=== PATIENT | male | born 1980 | race Caucasian/White ===

== ENCOUNTER → 2017-06-01 | Outpatient (CLI) | payer BC ==
[2017-06-01 14:46] LABS: BASO # 0.1 (0.0-0.2); EOS # 0.4 (0.0-0.7); EOS % 4.4 % (0-4.0); GRAN # 4.7 (1.4-6.5); GRAN % 58.2 % (42.2-75.2); HEMATOCRIT 44.4 % (42.0-52.0); LYMPH # 2.3 (1.2-3.4); LYMPH % 28.1 % (20.0-51.0); MEAN CELL VOLUME 94 fl (80.0-100.0); MEAN CORPUSCULAR HEMOGLOBIN 32 pg (27.0-31.0); MEAN CORPUSCULAR HGB CONC 34 g/dl (33.0-37.0); MONO # 0.6 (0.1-0.6); MONO % 7.6 % (1.7-9.3); PLATELET COUNT 248 K/mm3 (130-400); RED BLOOD COUNT 4.73 M/mm3 (4.20-5.60)
[2017-06-01 14:51] LABS: ADJUSTED CALCIUM 9.4 mg/dL (8.4-10.2); ALBUMIN 4.6 gm/dL (3.5-5.0); BILIRUBIN,TOTAL 0.5 mg/dL (0.0-1.0); CALCIUM 9.9 mg/dL (8.4-10.2); CREATININE, serum 0.88 mg/dL (0.66-1.25); POTASSIUM 4.1 mmol/L (3.4-5.0)
== END ==
LOC: COL.RAD 10:37
PROVIDERS: Nurse Practitioner
DX: M51.36 Other intervertebral disc degeneration, lumbar region (principal); R10.32 Left lower quadrant pain

== ENCOUNTER 2021-02-18 11:07 | Observation (INO) | payer OTHER ==
[~2021-02-18] VITALS: Ht 188 cm; Wt 124.7 kg
[2021-02-18] VITALS (11 sets, daily range): BP systolic 111–137; BP diastolic 67–74; PULSE 73–94; TEMP 97.7–98.6
[2021-02-18] MEDS ORDERED: METFORMIN PO (11:54)
[2021-02-18] MEDS ORDERED: GLIPIZIDE PO (11:54)
[2021-02-18] MEDS ORDERED: NORCO 325 MG-51 TAB PO (11:55)
--- NOTE | 2021-02-18 16:51 | NUR ---
Patient alert and oriented, answers questions appropriately. See assessment. Packing and gauze in place to right scrotum. No c/o pain to scrotum. Visiting hours and dietary ordering reviewed with patient and spouse. No c/o at this time.
--- NOTE | 2021-02-18 20:00 | NUR ---
PATIENT IS ALERT AND ORIENTED X4. PATIENT HAS 1/2 IODOFOM, 4X4, KERLIX, AND MESH UNDIES ON PERINEAL ABCESS. PATIENT HAD JUST GOTTEN DONE TAKING A WALK AROUND THE FLOOR. PATIENT HAS 20G TO LEFT HAND. PATIENT ON ADA DIET. PATIENT DENIES PAIN OR FURTHER NEEDS AT THIS TIME. CALL LIGHT WITHIN REACH. HEAD TO TOE ASSESSMENT COMPLETE.
[2021-02-19] MEDS ORDERED: NORCO 325 MG-51 TAB PO (07:20)
[2021-02-19 07:47] VITALS: BP 135/77; PULSE 76; TEMP 97.8
--- NOTE | 2021-02-19 12:30 | NUR ---
Discharge instructions reviewed with patient, verbalized understanding. Discharged via wheelchair to auto/home at 1230.
== END 2021-02-19 12:30 | disposition home or self-care (01) ==
LOC: INPTSU 11:07 → SURG 15:47
PROVIDERS: ADMIT Urology
DX: N49.2 Inflammatory disorders of scrotum (principal); L02.31 Cutaneous abscess of buttock; E11.9 Type 2 diabetes mellitus without complications; F17.210 Nicotine dependence, cigarettes, uncomplicated; Z20.822 Contact with and (suspected) exposure to COVID-19; Z79.84 Long term (current) use of oral hypoglycemic drugs
CPT/HCPCS: G0378; J0690; J1815; J1885; J2270; J2405; J2704; J3010; J7030; J7120

== ENCOUNTER 2024-01-29 18:04 | Emergency (ER) | payer OTHER ==
[~2024-01-29] VITALS: Ht 188 cm; Wt 125.0 kg
[~2024-01-29 18:04] MED LIST: GLIPIZIDE PO; METFORMIN PO; NORCO 325 MG-51 TAB PO
[2024-01-29 18:07] VITALS: BP 139/87; TEMP 97.4
[2024-01-29 20:09] VITALS: PULSE 77
== END 2024-01-29 20:10 | disposition home or self-care (01) ==
LOC: COL.ER 18:04
DX: H04.551 Acquired stenosis of right nasolacrimal duct (principal)

== ENCOUNTER 2024-03-19 14:13 | Emergency (ER) | payer OTHER ==
[~2024-03-19] VITALS: Ht 188 cm; Wt 122.7 kg
[2024-03-19 14:34] VITALS: TEMP 97.8
[2024-03-19] MEDS ORDERED: fentaNYL 50 MCG/ML 2 ML VIAL IV ONE (15:30)
[2024-03-19] MEDS ORDERED: Ketorolac 30 MG/ML VIAL IV ONE (15:30)
[2024-03-19 16:00] LABS: BASO # 0.1 K/mm3 (0.0-0.2); BASO % 0.6 % (0.0-2.0); EOS # 0.3 K/mm3 (0.0-0.7); EOS % 3.3 % (0.0-4.0); GRAN # 6.6 K/mm3 (1.4-6.5); GRAN % 63.4 % (42.2-75.2); HEMATOCRIT 42.1 % (42.0-52.0); HEMOGLOBIN 14.3 g/dl (13.5-18.0); LYMPH # 2.7 K/mm3 (1.2-3.4); LYMPH % 26.5 % (20.0-51.0); MEAN CELL VOLUME 92 fl (80.0-100.0); MEAN CORPUSCULAR HEMOGLOBIN 31 pg (27-31); MEAN CORPUSCULAR HGB CONC 34 g/dl (33.0-37.0); MEAN PLATELET VOLUME 9.8 fl (7.4-10.4); MONO # 0.6 K/mm3 (0.1-0.6); MONO % 5.8 % (1.7-9.3); PLATELET COUNT 236 K/mm3 (130-400); RED BLOOD COUNT 4.59 M/mm3 (4.20-5.60); REDCELL DISTRIBUTION WIDTH-CV 12.6 % (11.5-14.5)
[2024-03-19] MEDS ORDERED: Iohexol 300 - 100 ML VIAL IV ONE (16:05)
[2024-03-19] MEDS ORDERED: NS 100 ML IV SCH (16:06)
[2024-03-19 16:16] LABS: ALBUMIN 3.5 g/dL (3.5-5.0); BILIRUBIN,TOTAL 0.4 mg/dL (0.2-1.2); CALCIUM 9.5 mg/dL (8.4-10.2); CREATININE, serum 0.85 mg/dL (0.72-1.25); POTASSIUM 3.8 mEq/L (3.5-4.5); TOTAL PROTEIN 6.9 g/dl (6.2-8.1)
[2024-03-19] MEDS ORDERED: AMOXICILLIN 8751 TAB PO (17:19)
[2024-03-19] MEDS ORDERED: NORCO 325 MG-51 TAB PO (17:21)
[2024-03-19 17:31] VITALS: BP 140/87; PULSE 84
== END 2024-03-19 17:32 | disposition home or self-care (01) ==
LOC: COL.ER 14:13
PROVIDERS: Physician Assistant
DX: K61.0 Anal abscess (principal); E66.01 Morbid (severe) obesity due to excess calories; F17.210 Nicotine dependence, cigarettes, uncomplicated
CPT/HCPCS: J1885; J3010; Q9967